=== PATIENT | male | born 2000 | race African-American/Black ===

== ENCOUNTER 2022-06-12 20:05 | Emergency (ER) | payer MEDICAID, OTHER ==
[~2022-06-12] VITALS: Ht 188 cm; Wt 86.7 kg
[2022-06-12] MEDS ORDERED: TETANUS, DIPHTHERIA, PERTUSSIS VAC/PF 0.5ML (>10YR OLD) IM ONE (22:30)
[2022-06-13] MEDS ORDERED: AMOX1TAB16 MT (00:28)
[2022-06-13] MEDS ORDERED: AMOXICILLIN/POTASSIUM CLAVULANATE 875/125MG TAB PO ONE (00:30)
[2022-06-13] MEDS ORDERED: TETANUS, DIPHTHERIA, PERTUSSIS VAC/PF 0.5ML (>10YR OLD) IM ONE (00:52)
[2022-06-13] MEDS ORDERED: AMOXICILLIN/POTASSIUM CLAVULANATE 875/125MG TAB PO NR (01:00)
[2022-06-13 01:06] VITALS: BP 133/89
== END 2022-06-13 01:08 | disposition home or self-care (01) ==
LOC: ER 20:05
DX: S41.152A Open bite of left upper arm, initial encounter (principal); J45.909 Unspecified asthma, uncomplicated; W54.0XXA Bitten by dog, initial encounter; Y93.89 Activity, other specified; Y92.89 Other specified places as the place of occurrence of the external cause; Y99.8 Other external cause status
CPT/HCPCS: 90471; 90715; 99283